=== PATIENT | male | born 1995 | race Caucasian/White ===

== ENCOUNTER 2018-09-14 02:49 | Emergency (ER) | payer BC ==
[2018-09-14] MEDS ORDERED: RINGERS SOLUTION,LACTATED 1,000 ML IV ONE (03:11)
[2018-09-14] MEDS ORDERED: ONDANSETRON HCL INJ/PF 4 MG/2 ML SDV IV ONE (03:12)
[2018-09-14] MEDS ORDERED: MORPHINE SULFATE 10 MG/ML INJ IV ONE (03:12)
[2018-09-14] MEDS ORDERED: LORAZEPAM INJ 2 MG/1 ML VIAL IV ONE (03:15)
[2018-09-14 03:26] LABS: ABSOLUTE EOSINOPHILS # (AUTO) 0.1 10^3/uL (0.0-0.6); ABSOLUTE LYMPHOCYTES (AUTO) 0.5 10^3/uL (0.5-4.7); ABSOLUTE MONOCYTES (AUTO) 0.5 10^3/uL (0.1-1.4); ABSOLUTE NEUT (AUTO) 7.2 10^3/uL (1.7-8.2); BASOPHILS % (AUTO) 0.3 % (0-2); EOSINOPHILS % (AUTO) 1.4 % (0-6); HEMATOCRIT 43.9 % (37.9-51.0); HEMOGLOBIN 15.4 g/dL (13.5-17.0); MEAN CORPUSCULAR HGB CONC 35.2 g/dL (32.0-36.0); MEAN CORPUSCULAR VOLUME 83 fl (80-97); MONOCYTES % (AUTO) 5.9 % (3-13); PLATELET COUNT 221 10^3/uL (150-450); RED BLOOD COUNT 5.32 10^6/uL (4.35-5.55); RED CELL DISTRIBUTION WIDTH 12.8 % (11.5-14.0); SEGMENTED NEUTROPHILS % (AUTO) 86.4 % (42-78); TOTAL CELLS COUNTED % (AUTO) 100 %; WHITE BLOOD COUNT 8.3 10^3/uL (4.0-10.5)
[2018-09-14 03:41] LABS: ALANINE AMINOTRANSFERASE 70 U/L (21-72); ALBUMIN 4.3 g/dL (3.5-5.0); ALKALINE PHOSPHATASE 97 U/L (38-126); ANION GAP 12 (5-19); ASPARTATE AMINO TRANSFERASE 124 U/L (17-59); BILIRUBIN,DIRECT 0.6 mg/dL (0.0-0.4); BLOOD UREA NITROGEN 10 mg/dL (7-20); CALCIUM 9.5 mg/dL (8.4-10.2); CARBON DIOXIDE 24 mmol/L (22-30); CHLORIDE 104 mmol/L (98-107); GLUCOSE 115 mg/dL (75-110); LIPASE 79.7 U/L (23-300); POTASSIUM 3.3 mmol/L (3.6-5.0); TOTAL PROTEIN 7.1 g/dL (6.3-8.2)
--- NOTE | 2018-09-14 03:55 | RADIOLOGY REPORT (SQ) ---
EXAM DESCRIPTION: XR ABDOMEN SUPINE AND ERECT WITH CHEST (ABD ACUTE SERIES) COMPLETED DATE/TME: 09/14/2018 03:17 CLINICAL HISTORY: 22 years Male, chest, upper abd pain Comparison: None. NUMBER OF VIEWS/TECHNIQUE: 3 LIMITATIONS: None. FINDINGS: Intestinal gas pattern is within normal limits. No suspicious calcification. Grossly intact skeletal structures. No acute cardiopulmonary findings. IMPRESSION: No acute findings.
[2018-09-14] MEDS ORDERED: NORMAL SALINE 1000 ML 1,000 ML IV ONE (04:02)
[2018-09-14 04:06] LABS: APPEARANCE,URINE CLEAR; BILIRUBIN,URINE NEGATIVE (NEGATIVE); COLOR,URINE YELLOW; GLUCOSE, URINE NEGATIVE (NEGATIVE); KETONES,URINE 20 mg/dL (NEGATIVE); LEUKOCYTE ESTERASE,URINE SMALL (NEGATIVE); NITRITE,URINE NEGATIVE (NEGATIVE); PROTEIN,URINE NEGATIVE (NEGATIVE); URINE SPECIFIC GRAVITY 1.019; UROBILINOGEN,URINE NEGATIVE mg/dL (<2.0)
--- NOTE | 2018-09-14 04:44 | RADIOLOGY REPORT (SQ) ---
EXAM DESCRIPTION: US ABDOMEN DOPPLER LIMITED COMPLETED DATE/TME: 09/14/2018 03:51 CLINICAL HISTORY: 22 years, Male, RUQ pain COMPARISON: None. TECHNIQUE: Grayscale and color images of the abdomen. LIMITATIONS: None. FINDINGS: The visualized portions of the pancreas and abdominal aorta are unremarkable. The liver is normal in size, shape, and echotexture. The liver measures 15.1 cm. The main portal vein is patent and demonstrates normal hepatopedal flow. The gallbladder appears normal. No evidence of cholelithiasis or wall thickening. No sonographic Almazan sign was elicited. The common bile duct measures up to 3 mm in diameter. The right kidney measures 11.1 x 4.9 x 6.0 cm. No hydronephrosis. IMPRESSION: Unremarkable abdominal ultrasound copyright 2010 [email or web address]- All Rights Reserved
--- NOTE | 2018-09-14 05:42 | ER Document Report ---
ED General - General Chief Complaint: Anxiety Stated Complaint: DIFFICULTY BREATHING Time Seen by Provider: 09/14/18 03:11 Notes: Patient is a 22-year-old male presents to the emergency department with his sister for generalized tachycardia. Patient states around midnight he was lying in bed when he developed generalized abdominal pain. Patient states it started around his umbilicus and radiated up and into his chest. Patient states now he feels as though his heart is "beating out of my chest." Patient is complaining of generalized chest pain. Patient states his abdominal pain does not hurt anymore. Patient states on Friday he did have over 10 episodes of non-bloody diarrhea as stated he also had 10 more episodes on Friday and Friday. Patient states on Friday he was to his primary care provider who told him he did have blood in his urine and could potentially have a kidney stone. Patient states there was no imaging or blood work done at his primary care doctors. Past medical history: None Medications: Pepto-Bismol Allergies: Penicillin Surgical history: None TRAVEL OUTSIDE OF THE [place] IN LAST 30 DAYS: No - Related Data Allergies/Adverse Reactions: Penicillins Allergy (Verified 09/14/18 02:55) Past Medical History - General Information source: Patient, Relative - Social History Smoking Status: Never Smoker Family History: Reviewed & Not Pertinent Patient has suicidal ideation: No Patient has homicidal ideation: No Renal/ Medical History: Denies: Hx Peritoneal Dialysis Review of Systems - Review of Systems Constitutional: No symptoms reported EENT: No symptoms reported Cardiovascular: See HPI Respiratory: See HPI, Short of breath Gastrointestinal: See HPI Genitourinary: See HPI Male Genitourinary: No symptoms reported. denies: Testicular pain Musculoskeletal: No symptoms reported Skin: No symptoms reported Hematologic/Lymphatic: No symptoms reported Neurological/Psychological: No symptoms reported Physical Exam - Vital signs Vitals: Resp BP Pulse Ox 21 H 162/89 H 100 09/14/18 03:05 09/14/18 03:05 09/14/18 03:05 - Notes Notes: GENERAL: Alert, interacts well. tachypneic and tachycardic. HEAD: Normocephalic, atraumatic. EYES: Pupils equal, round, and reactive to light. Extraocular movements intact. ENT: Oral mucosa moist, tongue midline. NECK: Full range of motion. Supple. Trachea midline. LUNGS: Clear to auscultation bilaterally, no wheezes, rales, or rhonchi. No resp iratory distress. HEART: Tachycardic rate and rhythm. No murmur Chest: No crepitus felt, no erythema or ecchymosis noted anterior posterior chest wall ABDOMEN: Soft, non-tender. Non-distended. Bowel sounds present in all 4 quadrants. No Almazan sign noted, no McBurney's point tenderness noted. Gene ralized epigastric pain radiating to center chest. EXTREMITIES: Moves all 4 extremities spontaneously. No edema, normal radial and dorsalis pedis pulses bilaterally. No cyanosis. BACK: no cervical, thoracic, lumbar midline tenderness. No saddle anesthesia, normal distal neurovascular exam. No CVA tenderness noted bilaterally NEUROLOGICAL: Alert and oriented x3. Normal speech. cranial nerves II through XII grossly intact PSYCH: Normal affect, normal mood. SKIN: Warm, dry, normal turgor. No rashes or lesions noted. Course - Re-evaluation Re-evalutation: Patient initially presents to the emergency department tachycardic and c omplaining of generalized chest pain epigastric abdominal pain, patient's physical exam is somewhat limited due to him being tachypneic, tachycardic, and extremely anxious appearing. In discussing his medical history with his sister his sister states that he has a history of anxiety and used to be on medications but is no longer on medications for his anxiety. Patient voices that he is very concerned about his generalized chest pain. He is unconcerned about his abdominal pain at this time. Initial lab work ordered. Pain medication and Ativan also ordered, Trop negative. Acute abdominal series ordered as well. Shows no acute abnormalities. In repeat examination of the patient is now stating that the chest pain has since resolved. Patient's heart rate has come down significantly and is in the 1 teens. Now we can address his abdominal pain. Patient states pain is mostly right upper quadrant and at times epigastric. Ultrasound right upper quadrant ordered, no signs of cholecystitis or cholelithiasis. In reexamination of patient his heart rate is down to 98 with 2 L of fluid, and pain medication. Patient states he overall feels a lot better. Upon reexamination of his abdomen he no longer has right upper quadrant pain but now does have positive McBurney's point tenderness. Patient is in significant pain upon deep palpation right lower quadrant. Discussed risks versus benefits of CT imaging of the patient's right lower quadrant despite his labs showing no signs of leukocytosis. Patient wishes to proceed with CT at this time. 09/14/18 06:57 Patient's heart rate at this time is down to 88. He states his abdominal pain has since resolved completely. On repeat examination patient has very faint right lower quadrant abdominal pain noted on very deep palpation. Patient's CT does reveal mesenteric adenitis. Discussed this with patient at bedside. Patient is stable for discharge. 09/14/18 07:00 09/14/18 07:01 Patient's initial EKG shows a sinus tachycardia rate of 127, QTC 402, no ST segment elevations or depressions noted. - Vital Signs Vital signs: Temp Pulse Resp BP Pulse Ox 17 132/72 H 95 09/14/18 04:29 09/14/18 04:29 09/14/18 04:29 - Laboratory Result Diagrams: 09/14/18 03:01 09/14/18 03:01 Laboratory results interpreted by me: 09/14/18 09/14/18 09/14/18 03:01 03:01 03:48 Seg Neutrophils % 86.4 H Lymphocytes % 6.0 L Potassium 3.3 L Glucose 115 H Direct Bilirubin 0.6 H AST 124 H Urine Ketones 20 H Urine Blood SMALL H Ur Leukocyte Esterase SMALL H Discharge - Discharge Clinical Impression: Mesenteric adenitis Diarrhea Qualifiers: Diarrhea type: unspecified type Qualified Code(s): R19.7 - Diarrhea, unspecified Condition: Stable Disposition: HOME, SELF-CARE Instructions: Anxiety ([facility]) Additional Instructions: You have been seen and treated in the emergency department for mesenteric adenitis. This is an inflammation of the lymph nodes in your right lower abdomen. This is typically treated with [id number] Tylenol or Motrin. Please make sure you are staying well-hydrated despite your diarrhea. Also as we discussed your potassium is decreased on today's visit. Please make sure you are eating foods high in potassium like bananas, potatoes, tomatoes, avocados. Please also stay well-hydrated with Gatorade or Pedialyte. Please make an appointment with your primary care provider in the next 24-48 hours or return to the emergency room should he have any other concerning symptoms. Forms: Return to Work
--- NOTE | 2018-09-14 06:40 | RADIOLOGY REPORT (SQ) ---
EXAM DESCRIPTION: CT ABDOMEN PELVIS WITH IV CONTRAST COMPLETED DATE/TME: 09/14/2018 05:39 CLINICAL HISTORY: 22 years Male, RLQ pain Comparison: None. Technique: IV contrast. Coronal and sagittal reformat. This exam was performed according to our departmental dose-optimization program, which includes automated exposure control, adjustment of the mA and/or kV according to patient size and/or use of iterative reconstruction technique. [facility]: Dose Right [facility]: CareDose [facility]: Dose Right [facility]: Teradose 4D [facility]: [employer] LIMITATIONS: None Findings: Mild mesenteric lymphadenopathy of the right lower abdominal quadrant. No ascites. No pneumoperitoneum. Normal appendix. No gross evidence of gallbladder inflammation or hepatobiliary obstruction. No bowel obstruction. No hydronephrosis or hydroureter. No renal/ureteral stone. Rudimentary L4-L5 disc. Inferior thorax, liver, gallbladder, pancreas, spleen, adrenals, renal system, gastrointestinal tract, pelvic organs, lymphatics, vasculature, and musculoskeleton appear otherwise unremarkable. IMPRESSION: Mild mesenteric adenitis.
--- NOTE | 2018-09-14 06:58 | EKG REPORT ---
SEVERITY:- OTHERWISE NORMAL ECG - SINUS TACHYCARDIA : Confirmed by: Alex Farmer 14-Sep-2018 06:58:13
[2018-09-14 07:26] VITALS: BP 137/70
== END 2018-09-14 07:27 | disposition home or self-care (01) ==
LOC: ER 02:49
DX: I88.0 Nonspecific mesenteric lymphadenitis (principal); R19.7 Diarrhea, unspecified; F41.9 Anxiety disorder, unspecified; R00.0 Tachycardia, unspecified; R07.9 Chest pain, unspecified; R10.13 Epigastric pain; Z88.0 Allergy status to penicillin
CPT/HCPCS: 93005; 99284; 96361; 96374; 96375; 36415; 87086; 83690; 85025; 80053; 81001; 84484; 74022; 76705; 93976; 74177; 93010; J2270; J2060; J2405; J7030; J7120